=== PATIENT | female | born 1975 | race Two or more races ===

== ENCOUNTER 2018-07-05 16:13 | Inpatient (IN) | payer SELFPAY ==
[2018-07-05] MEDS ORDERED: NORMAL SALINE 1000 ML 1,000 ML IV ONE ×2 (16:49→17:47)
--- NOTE | 2018-07-05 16:52 | ER Document Report ---
ED Medical Screen (RME) - General Chief Complaint: Chest Pain Stated Complaint: CHEST PAIN Time Seen by Provider: 07/05/18 16:32 Mode of Arrival: Ambulatory Information source: Patient, [facility] Records Notes: 42-year-old female with type 1 diabetes presents with complaint of shortness of breath, chest pain, weakness, fatigue and nausea that have been ongoing for approximately 1 month. Patient states that her shortness of breath has worsened over the last 4 days. She describes pain with deep inspiration. Patient recently returned from [place] approximately 10 days ago after being there for 1 week. Patient also states that she has not been on her diabetic medication for approximately 4 months due to her inability to pay. She states that she did check her glucose last week and it read over 500. Patient denies prior history of PE and DVT. I have greeted and performed a rapid initial assessment of this patient. A comprehensive ED assessment and evaluation of the patient, analysis of test results and completion of medical decision making process we will be contacted by additional ED providers. PHYSICAL EXAMINATION: GENERAL: Ill appearing, well-nourished and in no acute distress. HEAD: Atraumatic, normocephalic. EYES: Pupils equal round extraocular movements intact, conjunctiva are normal. ENT: Nares patent NECK: Normal range of motion LUNGS: No respiratory distress. Conversational dyspnea Musculoskeletal: Normal range of motion NEUROLOGICAL: Normal speech, normal gait. PSYCH: Normal mood, normal affect. SKIN: Warm, Dry, normal turgor, no rashes or lesions noted. TRAVEL OUTSIDE OF THE [place] IN LAST 30 DAYS: No COUNTRY TRAVELED TO/FROM: [place] - HPI Onset: Other Onset/Duration: Gradual, Persistent, Worse Quality of pain: Burning Severity: Moderate Associated Symptoms: Body/muscle aches, Chest pain, Cough (nonproductive), Dizzy /lightheaded, Nausea, Shortness of breath, Weakness Exacerbated by: Movement, Walking Relieved by: Denies Similar symptoms previously: No Recently seen / treated by doctor: No - Related Data Smoking: Non-smoker Frequency of alcohol use: None Drug Abuse: None Allergies/Adverse Reactions: No Known Allergies Allergy (Unverified 07/05/18 16:17) Past Medical History - Social History Chew tobacco use (# tins/day): No Frequency of alcohol use: None Drug Abuse: None Renal/ Medical History: Denies: Hx Peritoneal Dialysis Physical Exam - Vital signs Vitals: Temp Pulse Resp BP Pulse Ox 98.5 F 118 H 20 145/91 H 100 07/05/18 16:28 07/05/18 16:28 07/05/18 16:28 07/05/18 16:28 07/05/18 16:28 Course - Vital Signs Vital signs: Temp Pulse Resp BP Pulse Ox 98.5 F 118 H 20 145/91 H 100 07/05/18 16:28 07/05/18 16:28 07/05/18 16:28 07/05/18 16:28 07/05/18 16:28 Doctor's Discharge - Discharge Referrals: CULLEN GLORIA MD [Primary Care Provider] - Follow up as needed
[2018-07-05] MEDS ORDERED: ONDANSETRON 4 MG TAB.RAPDIS PO ONE (16:53)
[2018-07-05] MEDS ORDERED: HYDROMORPHONE HCL INJ/PF 2 MG/ML AMPULE IV ONE (17:04)
--- NOTE | 2018-07-05 17:32 | EKG REPORT ---
SEVERITY:- BORDERLINE ECG - SINUS TACHYCARDIA BORDERLINE T ABNORMALITIES, ANTERIOR LEADS : Confirmed by: Licha Best MD 05-Jul-2018 17:31:51
[2018-07-05 17:44] LABS: VENOUS BLOOD BASE EXCESS -23.1 mmol/L; VENOUS BLOOD HCO3 8.6 mmol/L (20-32); VENOUS BLOOD PCO2 39.4 mmHg (35-63)
[2018-07-05 17:45] LABS: ABSOLUTE LYMPHOCYTES (AUTO) 0.9 10^3/uL (0.5-4.7); ABSOLUTE MONOCYTES (AUTO) 0.6 10^3/uL (0.1-1.4); ABSOLUTE NEUT (AUTO) 6.3 10^3/uL (1.7-8.2); BASOPHILS % (AUTO) 0.2 % (0-2); HEMATOCRIT 53.6 % (36.0-47.0); HEMOGLOBIN 17.6 g/dL (12.0-15.5); LYMPHOCYTES % (AUTO) 11.1 % (13-45); MEAN CORPUSCULAR HEMOGLOBIN 32.4 pg (27.0-33.4); MEAN CORPUSCULAR HGB CONC 32.8 g/dL (32.0-36.0); MEAN CORPUSCULAR VOLUME 99 fl (80-97); MONOCYTES % (AUTO) 7.7 % (3-13); PLATELET COUNT 273 10^3/uL (150-450); RED BLOOD COUNT 5.42 10^6/uL (3.72-5.28); RED CELL DISTRIBUTION WIDTH 17.2 % (11.5-14.0); TOTAL CELLS COUNTED % (AUTO) 100 %; WHITE BLOOD COUNT 7.8 10^3/uL (4.0-10.5)
[2018-07-05 17:49] LABS: VENOUS BLOOD PH 6.96 (7.30-7.42)
[2018-07-05 17:54] LABS: APPEARANCE,URINE SLIGHTLY-CLOUDY; BILIRUBIN,URINE NEGATIVE (NEGATIVE); COLOR,URINE YELLOW; GLUCOSE, URINE >=500 mg/dL (NEGATIVE); KETONES,URINE 80 mg/dL (NEGATIVE); LEUKOCYTE ESTERASE,URINE NEGATIVE (NEGATIVE); NITRITE,URINE NEGATIVE (NEGATIVE); PROTEIN,URINE 100 mg/dL (NEGATIVE); URINE SPECIFIC GRAVITY 1.029; UROBILINOGEN,URINE NEGATIVE mg/dL (<2.0)
[2018-07-05] MEDS ORDERED: INSULIN REG, HUMAN 100 UNIT/ML 3 ML VIAL (PYX) IV ONE (17:58)
[2018-07-05 18:03] LABS: ALANINE AMINOTRANSFERASE 23 U/L (9-52); ALBUMIN 5.1 g/dL (3.5-5.0); ALKALINE PHOSPHATASE 207 U/L (38-126); ASPARTATE AMINO TRANSFERASE 10 U/L (14-36); BILIRUBIN,DIRECT 0.3 mg/dL (0.0-0.4); BILIRUBIN,TOTAL 0.8 mg/dL (0.2-1.3); BLOOD UREA NITROGEN 10 mg/dL (7-20); CALCIUM 9.8 mg/dL (8.4-10.2); CREATINE KINASE 27 U/L (30-135); GLUCOSE 332 mg/dL (75-110); POTASSIUM 4.6 mmol/L (3.6-5.0)
[2018-07-05 18:09] LABS: CHLORIDE 109 mmol/L (98-107); SODIUM 142.4 mmol/L (137-145)
[2018-07-05 18:13] LABS: ANION GAP 27 (5-19); PHOSPHORUS 4.1 mg/dL (2.5-4.5)
[2018-07-05 18:15] LABS: CARBON DIOXIDE 6 mmol/L (22-30)
[2018-07-05 18:16] LABS: CREATINE KINASE MB 0.58 ng/mL (<4.55)
[2018-07-05 18:17] LABS: TROPONIN I < 0.012 ng/mL
--- NOTE | 2018-07-05 18:18 | ER Document Report ---
ED General - General Chief Complaint: Chest Pain Stated Complaint: CHEST PAIN Time Seen by Provider: 07/05/18 16:32 Mode of Arrival: Ambulatory TRAVEL OUTSIDE OF THE [place] IN LAST 30 DAYS: No COUNTRY TRAVELED TO/FROM: [place] - [facility] Notes: 42-year-old female with history of diabetes presents with multiple complaints. She has been noncompliant with medications for diabetes due to not having insurance for the past several months. Her BS was 500 last week. She traveled back from [place] about a week ago. For the past 3 days, she has had significant fatigue and excessive sleepiness. She developed diffuse low back pain radiating down both legs. She denies any pain with urination or blood in her urine. No vaginal discharge or bleeding. No focal weakness or numbness. She has had nausea without vomiting. No diarrhea or abdominal pain. She developed headache today with neck pain. She reports chest pain with deep breathing and significant shortness of breath with minimal activity. She has a mild cough that has been nonproductive. No hemoptysis. No fevers or chills. Denies ill contacts. - Related Data Allergies/Adverse Reactions: No Known Allergies Allergy (Unverified 07/05/18 16:17) Past Medical History - General Information source: Patient, [facility] Records - Social History Smoking Status: Never Smoker Chew tobacco use (# tins/day): No Frequency of alcohol use: None Drug Abuse: None Family History: Reviewed & Not Pertinent Patient has suicidal ideation: No Patient has homicidal ideation: No Endocrine Medical History: Reports: Hx Diabetes Mellitus Type 1 Renal/ Medical History: Denies: Hx Peritoneal Dialysis Review of Systems - Review of Systems Notes: Constitutional: Negative for fever or chills. Positive for generalized weakness and excessive sleepiness HENT: Negative for sore throat. Eyes: Negative for visual changes. Cardiovascular: Positive for chest pain with inspiration. Respiratory: Positive for shortness of breath and cough. Gastrointestinal: Negative for abdominal pain, vomiting or diarrhea. Positive for nausea Genitourinary: Negative for dysuria. Musculoskeletal: Positive for neck and back pain. Skin: Negative for rash. Neurological: Positive for headaches and generalized weakness. negative for focal weakness or numbness. 10 point ROS negative except as marked above and in HPI. Physical Exam - Vital signs Vitals: Temp Pulse Resp BP Pulse Ox 98.5 F 118 H 20 145/91 H 100 07/05/18 16:28 07/05/18 16:28 07/05/18 16:28 07/05/18 16:28 07/05/18 16:28 - Notes Notes: PHYSICAL EXAMINATION: GENERAL: Ill-appearing, well-nourished. HEAD: Atraumatic, normocephalic. EYES: Pupils equal round and reactive to light, extraocular movements intact, conjunctiva are normal. ENT: nares patent, oropharynx clear without exudates. Dry mucous membranes. NECK: Normal range of motion, supple without lymphadenopathy LUNGS: Breath sounds clear to auscultation bilaterally and equal. No wheezes rales or rhonchi. Mild tachypnea HEART: Tachycardic. Normal rhythm. No chest wall tenderness ABDOMEN: Soft, nontender, normoactive bowel sounds. No guarding, no rebound. No masses appreciated. EXTREMITIES: Normal range of motion, no pitting or edema. No cyanosis. Diffuse tenderness to palpation of lower back NEUROLOGICAL: Cranial nerves grossly intact. Normal speech, normal gait. Normal sensory and motor exams. PSYCH: Normal mood, normal affect. SKIN: Warm, Dry, normal turgor, no rashes or lesions noted. Course - Re-evaluation Re-evalutation: 07/05/18 18:18 Suspect DKA. Fluids and insulin drip ordered. D-dimer elevated with recent travel and tachycardia. CT chest ordered. 07/05/18 19:01 Chest x-ray clear. Lactic acid normal. No suggestion of infection. Low suspicion for meningitis. CT pending. Patient and family updated on need for ICU admission. Hourly glucose ordered with BMP in 2 hours. 07/05/18 19:47 hospitalist for admission. BS decreased to 234. D5 LR started at 250cc/hr. Oral potassium replaced. - Vital Signs Vital signs: Temp Pulse Resp BP Pulse Ox 98.5 F 118 H 20 145/91 H 100 07/05/18 16:28 07/05/18 16:28 07/05/18 16:28 07/05/18 16:28 07/05/18 16:28 - Laboratory Result Diagrams: 07/05/18 17:15 07/05/18 17:15 Laboratory results interpreted by me: 07/05/18 07/05/18 07/05/18 17:02 17:15 17:15 RBC 5.42 H Hgb 17.6 H Hct 53.6 H MCV 99 H RDW 17.2 H Seg Neutrophils % 81.0 H Lymphocytes % 11.1 L D-Dimer VBG pH VBG HCO3 Chloride 109 H Carbon Dioxide 6 L* Anion Gap 27 H Glucose 332 H POC Glucose 307 H AST 10 L Alkaline Phosphatase 207 H Creatine Kinase 27 L Total Protein 9.0 H Albumin 5.1 H Urine Protein Urine Glucose (UA) Urine Ketones 07/05/18 07/05/18 07/05/18 17:15 17:15 17:15 RBC Hgb Hct MCV RDW Seg Neutrophils % Lymphocytes % D-Dimer 0.61 H VBG pH 6.96 L* VBG HCO3 8.6 L Chloride Carbon Dioxide Anion Gap Glucose POC Glucose AST Alkaline Phosphatase Creatine Kinase Total Protein Albumin Urine Protein 100 H Urine Glucose (UA) >=500 H Urine Ketones 80 H Critical Care Note - Critical Care Note Total time excluding time spent on procedures (mins): 45 - Critical care time spent obtaining history from patient or surrogate, discussions with consultants , development of treatment plan with patient or surrogate, evaluation of patient 's response to treatment, examination of patient, ordering and performing treatments and interventions, ordering and review of laboratory studies, re- evaluation of patient's condition, ordering and review of radiographic studies and review of old charts Discharge - Discharge Clinical Impression: DKA (diabetic ketoacidoses) Condition: Critical Disposition: ADMITTED INPATIENT Admitting Provider: Hospitalist Unit Admitted: ICU Referrals: CULLEN GLORIA MD [Primary Care Provider] - Follow up as needed
--- NOTE | 2018-07-05 18:28 | RADIOLOGY REPORT (SQ) ---
EXAM DESCRIPTION: CHEST 2 VIEWS COMPLETED DATE/TIME: 07/05/2018 6:18 pm REASON FOR STUDY: cp, sob COMPARISON: None. EXAM PARAMETERS: NUMBER OF VIEWS: two views TECHNIQUE: Digital Frontal and Lateral radiographic views of the chest acquired. RADIATION DOSE: NA LIMITATIONS: none FINDINGS: LUNGS AND PLEURA: No consolidation, pneumothorax or pleural effusion. MEDIASTINUM AND HILAR STRUCTURES: No masses or contour abnormalities. HEART AND VASCULAR STRUCTURES: Heart normal size. No evidence for failure. BONES: No acute findings. HARDWARE: None in the chest. IMPRESSION: NO ACUTE RADIOGRAPHIC FINDING IN THE CHEST. TECHNICAL DOCUMENTATION: JOB ID: [id number] [employer]- All Rights Reserved Reading location - IP/workstation name: [email or web address]
[2018-07-05] MEDS ORDERED: POTASSIUM CHLORIDE 10 MEQ CAPSULE.ER PO ONE (18:57)
[2018-07-05] MEDS ORDERED: ONDANSETRON HCL INJ/PF 4 MG/2 ML SDV IV PRN (19:43)
[2018-07-05] MEDS ORDERED: GLUCAGON,HUMAN RECOMB 1 MG INJ IM PRN (19:43)
[2018-07-05] MEDS ORDERED: DEXTROSE 50%-WATER 25 GM/50 ML DISP.SYRIN IV PRN ×2 (19:43)
[2018-07-05] MEDS ORDERED: ONDANSETRON 4 MG TAB.RAPDIS PO PRN (19:43)
[2018-07-05] MEDS ORDERED: DEXTROSE 40% GEL 15 GM TUBE PO PRN ×2 (19:43)
[2018-07-05] MEDS ORDERED: DEXTROSE 5%-LACTATED RINGERS 1,000 ML IV ONE (19:44)
--- NOTE | 2018-07-05 20:03 | RADIOLOGY REPORT (SQ) ---
EXAM DESCRIPTION: CTA CHEST COMPLETED DATE/TIME: 07/05/2018 7:19 pm REASON FOR STUDY: cp, sob, recent travel, elevated d dimer COMPARISON: Chest x-ray 07/05/2018. TECHNIQUE: CT scan of the chest performed using helical scanning technique with dynamic intravenous contrast injection. Images reviewed with lung, soft tissue and bone windows. Reconstructed coronal and sagittal MPR images reviewed. Additional 3 dimensional post-processing performed to develop Maximal Intensity Projection images (WI P). All images stored on PACS. All CT scanners at this facility use dose modulation, iterative reconstruction, and/or weight based d osing when appropriate to reduce radiation dose to as low as reasonably achievable (ALARA). [facility]: Dose Right [facility]: CareDose [facility]: Dose Right [facility]: Teradose 4D [facility]: Pin or Peg CONTRAST TYPE AND DOSE: contrast/concentration: Isovue 350.00 mg/ml; Total Contrast Delivered: 62.0 ml; Total Saline Delivered: 103.0 ml Contrast bolus optimized for the pulmonary arteries. Not diagnostic for the aorta. RENAL FUNCTION: Creatinine 0.56 RADIATION DOSE: CT Rad equipment meets quality standard of care and radiation dose reduction techniq ues were employed. CTDIvol: 14.6 - 16.5 mGy. DLP: 529 mGy-cm. . LIMITATIONS: None. FINDINGS: LUNGS AND PLEURA: No consolidation, pleural effusion or pneumothorax. AORTA AND GREAT VESSELS: No thoracic aortic aneurysm. Contrast bolus not optimized for the aorta. HEART: No pericardial effusion. No significant coronary artery calcifications. PULMONARY ARTERIES: No emboli visualized in the main pulmonary arteries or the segmental branches. HILAR AND MEDIASTINAL STRUCTURES: No identified masses or abnormal nodes. HARDWARE: None in the chest. UPPER ABDOMEN: There is cholelithiasis. THYROID AND OTHER SOFT TISSUES: The visualized thyroid gland is unremarkable. BONES: No acute or significant finding. 3D MIPS: Confirm above findings. OTHER: There are bilateral breast implants. IMPRESSION: 1. No pulmonary emboli. No acute findings in the chest. 2. Cholelithiasis. COMMENT: Quality ID # [id number]: Final reports with documentation of one or more dose reduction techniques (e.g., Automated exposure control, adjustment of the mA and/or kV according to patient size, use of iterative reconstruction technique) TECHNICAL DOCUMENTATION: JOB ID: [id number] [employer]- All Rights Reserved Reading location - IP/workstation name: [email or web address]
[2018-07-05 20:16] LABS: BLOOD UREA NITROGEN 9 mg/dL (7-20); CALCIUM 8.7 mg/dL (8.4-10.2); CHLORIDE 116 mmol/L (98-107); GLUCOSE 258 mg/dL (75-110); POTASSIUM 3.9 mmol/L (3.6-5.0); SODIUM 139.7 mmol/L (137-145)
[2018-07-05 20:36] LABS: CARBON DIOXIDE < 5 mmol/L (22-30)
[2018-07-05] MEDS ORDERED: RINGERS SOLUTION,LACTATED 1,000 ML IV ONE (20:39)
[2018-07-05 21:58] LABS: VENOUS BLOOD BASE EXCESS -21.1 mmol/L; VENOUS BLOOD HCO3 8.7 mmol/L (20-32); VENOUS BLOOD PCO2 33.5 mmHg (35-63)
[2018-07-05 21:59] LABS: VENOUS BLOOD PH 7.03 (7.30-7.42)
[2018-07-05] MEDS: ACETAMINOPHEN 325 MG TABLET PO PRN (23:46)
[2018-07-05] MEDS ORDERED: DEXTROSE 5% IV PRN ×2 (23:59)
[2018-07-05] MEDS ORDERED: SODIUM BICARBONATE IV PRN ×2 (23:59)
[2018-07-05] MEDS ORDERED: WATER IV PRN ×2 (23:59)
--- NOTE | 2018-07-06 00:13 | PDOC H&P ---
History of Present Illness Admission Date/PCP: 07/05/18 20:13 Patient complains of: Burning sensation in chest, hyperglycemia History of Present Illness: DALE GONG is a 42 year old female with a known PMH of DM on insulin which she states she stopped taking 5 months ago secondary to lack of insurance presenting to ER with a burning sensation in her chest and hyperglycemia. States she has been having intermittent chest burning associated with shortness of breath x 1 month with worsening over the past 4 days. She was diagnosed with DM in 2011 and was on an insulin pump which she discontinued 5 months ago given she can not afford it and has no insurance. Patient also has no PCP. Past Medical History Endocrine Medical History: Reports: Diabetes Mellitus Type 1 Past Surgical History Past Surgical History: Reports: None Social History Information Source: Patient Lives with: Family Smoking Status: Never Smoker Drugs: None Family History Family History: Reviewed & Not Pertinent Parental Family History Reviewed: Yes Children Family History Reviewed: Yes Sibling(s) Family History Reviewed.: Yes Medication/Allergy Allergies/Adverse Reactions: No Known Allergies Allergy (Unverified 07/05/18 16:17) Review of Systems Constitutional: PRESENT: weakness. ABSENT: chills, fever(s), night sweats Cardiovascular: PRESENT: chest pain, dyspnea on exertion Respiratory: ABSENT: cough, hemoptysis Gastrointestinal: ABSENT: abdominal pain Musculoskeletal: PRESENT: back pain Physical Exam Vital Signs: Temp Pulse Resp BP Pulse Ox 98.5 F 118 H 15 124/99 H 100 07/05/18 16:28 07/05/18 16:28 07/05/18 20:04 07/05/18 20:04 07/05/18 20:04 General appearance: PRESENT: no acute distress Head exam: PRESENT: atraumatic, normocephalic Eye exam: PRESENT: conjunctiva pink, EOMI, PERRLA. ABSENT: scleral icterus Ear exam: PRESENT: normal external ear exam Mouth exam: PRESENT: moist, tongue midline Neck exam: ABSENT: carotid bruit, JVD, lymphadenopathy, thyromegaly Respiratory exam: PRESENT: clear to auscultation denita. ABSENT: rales, rhonchi, wheezes Cardiovascular exam: PRESENT: RRR. ABSENT: diastolic murmur, rubs, systolic murmur Pulses: PRESENT: normal dorsalis pedis pul Vascular exam: PRESENT: normal capillary refill GI/Abdominal exam: PRESENT: normal bowel sounds, soft. ABSENT: distended, guarding, mass, organolmegaly, rebound, tenderness Rectal exam: PRESENT: deferred Extremities exam: PRESENT: full ROM. ABSENT: calf tenderness, clubbing, pedal edema Musculoskeletal exam: PRESENT: full ROM, tenderness - paraspinal muscles bilateral lumbar region Neurological exam: PRESENT: alert, awake, oriented to person, oriented to place , oriented to time, oriented to situation, CN II-XII grossly intact. ABSENT: motor sensory deficit Psychiatric exam: PRESENT: appropriate affect, normal mood. ABSENT: homicidal ideation, suicidal ideation Skin exam: PRESENT: dry, intact, warm. ABSENT: cyanosis, rash Results Laboratory Results: 07/05/18 21:37 VBG pH 7.03 L* VBG pCO2 33.5 L VBG HCO3 8.7 L VBG Base Excess -21.1 Impressions: Chest X-Ray 07/05/18 17:48 IMPRESSION: NO ACUTE RADIOGRAPHIC FINDING IN THE CHEST. Chest/Abdomen CTA 07/05/18 18:12 IMPRESSION: 1. No pulmonary emboli. No acute findings in the chest. 2. Cholelithiasis. Assessment & Plan - Diagnosis (1) DKA (diabetic ketoacidoses) Qualifiers: Diabetes mellitus type: type 1 Diabetes mellitus complication detail: without coma Qualified Code(s): E10.10 - Type 1 diabetes mellitus with ketoacidosis without coma Is this a current diagnosis for this admission?: Yes Plan: Patient to be admitted to the ICU. Started on DKA protocol, with insulin drip. Titration as per protocol. continue with q1h BS checks. q4h BMP checks. Continue with fluid resuscitation. Will switch fluids to D5 1/2NS + 20 meq Kcl once BS between 150-250. 1amp bicarb to be given. Repeat pH appears to be improving. Will continue to monitor closely. (2) Poorly controlled diabetes mellitus Is this a current diagnosis for this admission?: Yes Plan: Patient is in need of diabetic education as well as assistance with access to medications. track service worker consult pending for this AM. (3) Chest pain, rule out acute myocardial infarction Is this a current diagnosis for this admission?: Yes Plan: trop negative x 1. will continue to trend q6h x 3 or until wnl. no acute chest pain at this time. EKG unremarkable. nitro, morphine prn chest pain. will continue to monitor. - Time Time Spent: 30 to 50 Minutes Critical Time spent with patient: 25-34 minutes Medications reviewed and adjusted accordingly: Yes Anticipated discharge: Home
[2018-07-06] MEDS ORDERED: KETOROLAC TROMETHAMINE INJ/PF 30 MG/1 ML SDV IV PRN (00:20)
[2018-07-06] MEDS ORDERED: CYCLOBENZAPRINE HCL 10 MG TABLET PO ONE (00:21)
[2018-07-06] MEDS ORDERED: SODIUM BICARBONATE 8.4% INJ 50 MEQ/50 ML DISP.SYRIN ONE (00:36)
[2018-07-06 00:47] LABS: ANION GAP 15 (5-19); BLOOD UREA NITROGEN 8 mg/dL (7-20); CALCIUM 8.6 mg/dL (8.4-10.2); CHLORIDE 117 mmol/L (98-107); GLUCOSE 209 mg/dL (75-110); POTASSIUM 3.1 mmol/L (3.6-5.0); SODIUM 140.6 mmol/L (137-145)
[2018-07-06 01:02] LABS: CARBON DIOXIDE 9 mmol/L (22-30)
[2018-07-06 04:18] LABS: ABSOLUTE MONOCYTES (AUTO) 0.7 10^3/uL (0.1-1.4); ABSOLUTE NEUT (AUTO) 3.6 10^3/uL (1.7-8.2); BASOPHILS % (AUTO) 0.3 % (0-2); EOSINOPHILS % (AUTO) 0.7 % (0-6); HEMATOCRIT 38.7 % (36.0-47.0); LYMPHOCYTES % (AUTO) 18.3 % (13-45); MEAN CORPUSCULAR HEMOGLOBIN 31.5 pg (27.0-33.4); MEAN CORPUSCULAR HGB CONC 33.7 g/dL (32.0-36.0); MONOCYTES % (AUTO) 13.7 % (3-13); PLATELET COUNT 179 10^3/uL (150-450); RED BLOOD COUNT 4.13 10^6/uL (3.72-5.28); RED CELL DISTRIBUTION WIDTH 16.2 % (11.5-14.0); TOTAL CELLS COUNTED % (AUTO) 100 %; WHITE BLOOD COUNT 5.3 10^3/uL (4.0-10.5)
[2018-07-06 04:19] LABS: MEAN CORPUSCULAR VOLUME 94 fl (80-97)
[2018-07-06 04:59] LABS: ANION GAP 9 (5-19); BLOOD UREA NITROGEN 6 mg/dL (7-20); CALCIUM 8.3 mg/dL (8.4-10.2); CARBON DIOXIDE 15 mmol/L (22-30); CHLORIDE 116 mmol/L (98-107); GLUCOSE 161 mg/dL (75-110); SODIUM 140.4 mmol/L (137-145)
[2018-07-06 05:05] LABS: POTASSIUM 2.8 mmol/L (3.6-5.0)
[2018-07-06] MEDS ORDERED: POTASSIUM CHLORIDE 10 MEQ CAPSULE.ER PO ONE ×3 (05:20→22:30)
[2018-07-06] MEDS: POTASSI CL 20 MEQ/D5NS 1L 20 MEQ/1,000 ML RTUINJ IV PRN ×3 (05:32→13:57)
[2018-07-06] MEDS ORDERED: INSULIN REG, HUMAN 100 UNIT/ML 3 ML VIAL (PYX) ONE (05:38)
[2018-07-06 08:05] LABS: ANION GAP 9 (5-19); BLOOD UREA NITROGEN 6 mg/dL (7-20); CALCIUM 7.9 mg/dL (8.4-10.2); CARBON DIOXIDE 16 mmol/L (22-30); CHLORIDE 116 mmol/L (98-107); GLUCOSE 116 mg/dL (75-110); SODIUM 140.9 mmol/L (137-145)
[2018-07-06 08:12] LABS: POTASSIUM 2.7 mmol/L (3.6-5.0)
[2018-07-06] MEDS: POTASSIUM CHLORIDE 10 MEQ CAPSULE.ER PO SCH (09:49)
[2018-07-06] MEDS: ENOXAPARIN SODIUM INJ 40 MG/0.4 ML DISP.SYRIN SUBCUT SCH (09:53)
[2018-07-06] MEDS: POTASSI CL 20 MEQ/50 ML RIDER 20 MEQ/50 ML RTUPB IV SCH ×3 (10:02→13:54)
[2018-07-06 11:08] LABS: ARTERIAL BLOOD BASE EXCESS -8.3 mmol/L; ARTERIAL BLOOD H2CO3 0.92 mmol/L (1.05-1.35); ARTERIAL BLOOD HCO3 16.2 mmol/L (20-26); ARTERIAL BLOOD O2 SATURATION 98.4 % (94-98); ARTERIAL BLOOD PCO2 30.5 mmHg (35-45); ARTERIAL BLOOD PH 7.34 (7.35-7.45); ARTERIAL BLOOD PO2 128.5 mmHg (80-100); ARTERIAL BLOOD TOTAL CO2 17.1 mmol/L (21-25)
[2018-07-06 11:13] LABS: ARTERIAL BLOOD FIO2 21%
[2018-07-06] MEDS ORDERED: NORMAL SALINE 100 ML with INSULIN REGULAR, HUMAN 100 UNIT IV PRN ×2 (12:59)
[2018-07-06 14:19] LABS: ANION GAP 6 (5-19); BLOOD UREA NITROGEN 7 mg/dL (7-20); CALCIUM 8.3 mg/dL (8.4-10.2); CARBON DIOXIDE 19 mmol/L (22-30); CHLORIDE 117 mmol/L (98-107); GLUCOSE 227 mg/dL (75-110); POTASSIUM 3.3 mmol/L (3.6-5.0); SODIUM 142.2 mmol/L (137-145)
[2018-07-06 14:35] LABS: PHOSPHORUS 0.7 mg/dL (2.5-4.5)
[2018-07-06] MEDS ORDERED: DEXTROSE 40% GEL 15 GM TUBE PO PRN ×2 (15:17)
[2018-07-06] MEDS ORDERED: DEXTROSE 50%-WATER 25 GM/50 ML DISP.SYRIN IV PRN ×2 (15:17)
[2018-07-06] MEDS ORDERED: GLUCAGON,HUMAN RECOMB 1 MG INJ IM PRN (15:17)
[2018-07-06] MEDS ORDERED: CALCIUM CARBONATE 500 MG TAB.CHEW PO ONE (17:33)
[2018-07-06] MEDS: LANSOPRAZOLE 15 MG TAB.RAP.DR PO SCH (17:48)
[2018-07-06] MEDS ORDERED: ALPRAZOLAM 0.25 MG TABLET PO PRN (17:57)
[2018-07-06] MEDS ORDERED: CYCLOBENZAPRINE HCL 10 MG TABLET PO PRN (17:57)
--- NOTE | 2018-07-06 18:00 | PDOC PROGRESS REPORT ---
Subjective Progress Note for:: 07/06/18 Subjective:: 42 y.o. F who presented to [facility] ED for midsternal "burning" and SOB x 1 month. She has a PMH of DM type 1 (diagnosed in her 30s) and stopped taking her insulin 5 months ago because she could no longer afford her insulin pump. The patient was seen this morning on rounds, she is resting comfortably in bed on room air. The patient states that her chest pain has resolved, she no longer feels short of breath or nauseated. Family is at the bedside. Lung sounds are clear to auscultation. S1-S2. NSR on cardiac telemetry. Pulses in upper and lower extremities. Positive bowel sounds. Abdomen is soft, nontender , nondistended. The patient remains on an insulin gtt. Repeat ABG shows the patient is no longer acidotic, anion gap still open. Plan to admit to [facility] on insulin gtt protocol Reason For Visit: DKA,CHEST PAIN Physical Exam Vital Signs: Temp Pulse Resp BP Pulse Ox 98.2 F 100 18 94/63 L 100 07/06/18 16:39 07/06/18 16:39 07/06/18 16:39 07/06/18 16:39 07/06/18 16:39 Intake & Output 07/05/18 07/06/18 07/07/18 06:59 06:59 06:59 Intake Total 3400 2107 Balance 3400 2107 General appearance: PRESENT: no acute distress, well-developed, well-nourished Head exam: PRESENT: atraumatic Eye exam: PRESENT: conjunctiva pink, PERRLA Mouth exam: PRESENT: moist, tongue midline Neck exam: PRESENT: full ROM Respiratory exam: PRESENT: clear to auscultation denita, symmetrical, unlabored Cardiovascular exam: PRESENT: RRR, +S1, +S2 Pulses: PRESENT: normal radial pulses, normal dorsalis pedis pul Vascular exam: PRESENT: normal capillary refill GI/Abdominal exam: PRESENT: normal bowel sounds, soft. ABSENT: tenderness Rectal exam: PRESENT: deferred Extremities exam: PRESENT: full ROM. ABSENT: joint swelling, pedal edema Musculoskeletal exam: PRESENT: ambulatory, full ROM Neurological exam: PRESENT: alert, awake, oriented to person, oriented to place , oriented to time, oriented to situation Psychiatric exam: PRESENT: appropriate affect Skin exam: PRESENT: dry, intact, normal color Results Laboratory Results: 07/06/18 03:55 07/06/18 13:30 07/05/18 07/06/18 07/06/18 21:37 00:15 03:55 WBC 5.3 RBC 4.13 Hgb 13.0 D Hct 38.7 MCV 94 D MCH 31.5 MCHC 33.7 RDW 16.2 H Plt Count 179 Seg Neutrophils % 67.0 Lymphocytes % 18.3 Monocytes % 13.7 H Eosinophils % 0.7 Basophils % 0.3 Absolute Neutrophils 3.6 Absolute Lymphocytes 1.0 Absolute Monocytes 0.7 Absolute Eosinophils 0.0 Absolute Basophils 0.0 Carbonic Acid HCO3/H2CO3 Ratio ABG pH ABG pCO2 ABG pO2 ABG HCO3 ABG O2 Saturation ABG Base Excess VBG pH 7.03 L* VBG pCO2 33.5 L VBG HCO3 8.7 L VBG Base Excess -21.1 FiO2 Sodium 140.6 Potassium 3.1 L Chloride 117 H Carbon Dioxide 9 L* Anion Gap 15 BUN 8 Creatinine 0.37 L Est GFR ( Amer) > 60 Est GFR (Non-Af Amer) > 60 Glucose 209 H Calcium 8.6 Phosphorus Magnesium 07/06/18 07/06/18 07/06/18 03:55 07:42 10:50 WBC RBC Hgb Hct MCV MCH MCHC RDW Plt Count Seg Neutrophils % Lymphocytes % Monocytes % Eosinophils % Basophils % Absolute Neutrophils Absolute Lymphocytes Absolute Monocytes Absolute Eosinophils Absolute Basophils Carbonic Acid 0.92 L HCO3/H2CO3 Ratio 17:1 ABG pH 7.34 L ABG pCO2 30.5 L ABG pO2 128.5 H ABG HCO3 16.2 L ABG O2 Saturation 98.4 H ABG Base Excess -8.3 VBG pH VBG pCO2 VBG HCO3 VBG Base Excess FiO2 21% Sodium 140.4 140.9 Potassium 2.8 L* 2.7 L* Chloride 116 H 116 H Carbon Dioxide 15 L 16 L Anion Gap 9 9 BUN 6 L 6 L Creatinine 0.33 L 0.33 L Est GFR ( Amer) > 60 > 60 Est GFR (Non-Af Amer) > 60 > 60 Glucose 161 H 116 H Calcium 8.3 L 7.9 L Phosphorus Magnesium 07/06/18 07/06/18 13:30 13:30 WBC RBC Hgb Hct MCV MCH MCHC RDW Plt Count Seg Neutrophils % Lymphocytes % Monocytes % Eosinophils % Basophils % Absolute Neutrophils Absolute Lymphocytes Absolute Monocytes Absolute Eosinophils Absolute Basophils Carbonic Acid HCO3/H2CO3 Ratio ABG pH ABG pCO2 ABG pO2 ABG HCO3 ABG O2 Saturation ABG Base Excess VBG pH VBG pCO2 VBG HCO3 VBG Base Excess FiO2 Sodium 142.2 Potassium 3.3 L Chloride 117 H Carbon Dioxide 19 L Anion Gap 6 BUN 7 Creatinine 0.34 L Est GFR ( Amer) > 60 Est GFR (Non-Af Amer) > 60 Glucose 227 H Calcium 8.3 L Phosphorus 0.7 L D Magnesium 1.4 L Impressions: Chest X-Ray 07/05/18 17:48 IMPRESSION: NO ACUTE RADIOGRAPHIC FINDING IN THE CHEST. Chest/Abdomen CTA 07/05/18 18:12 IMPRESSION: 1. No pulmonary emboli. No acute findings in the chest. 2. Cholelithiasis. Status: Imported from PACS Assessment & Plan - Diagnosis (1) DKA (diabetic ketoacidoses) Qualifiers: Diabetes mellitus type: type 1 Diabetes mellitus complication detail: without coma Qualified Code(s): E10.10 - Type 1 diabetes mellitus with ketoacidosis without coma Is this a current diagnosis for this admission?: Yes Plan: Secondary to noncompliance with insulin. Initial BG 332 Anion Gap 27 ph 6.9 on VBG 1 amp bicarb given, repeat pH is 7.34 on ABG Continue insulin drip per protocol Serial BMP checks every 6 hours Maintenance IVF d51/2NS 20KCL Plan to discontinue insulin gtt when BG < [address] on sliding scale insulin at that time (2) Chest pain Is this a current diagnosis for this admission?: Yes Plan: Unclear etiology but appears to be noncardiac in nature Troponin<0.012 and EKG shows NSR, no signs of ischemia or infarction Patient's only risk factor is diabetes, she is otherwise without multiple comorbidities No plan to consult cardiology Tylenol and flexeril PRN for chest wall pain Xanax PRN for anxiety TUMS PRN and BID lansoprazole for GERD - Time Time Spent with patient: 15-24 minutes Medications reviewed and adjusted accordingly: Yes Anticipated discharge: Home - Inpatient Certification Based on my medical assessment, after consideration of the patient's comorbidities, presenting symptoms, or acuity I expect that the services needed warrant INPATIENT care.: Yes I certify that my determination is in accordance with my understanding of Medicare's requirements for reasonable and necessary INPATIENT services [42 CFR 412.3e].: Yes Medical Necessity: Risk of Complication if Not Cared For in Hospital - Plan Summary Plan Summary: Admit to IMCU on insulin GTT. Serial BMP checks every 6 hours.
[2018-07-06 18:58] LABS: ANION GAP 11 (5-19); BLOOD UREA NITROGEN 6 mg/dL (7-20); CALCIUM 8.7 mg/dL (8.4-10.2); CARBON DIOXIDE 17 mmol/L (22-30); CHLORIDE 114 mmol/L (98-107); GLUCOSE 234 mg/dL (75-110); PHOSPHORUS 1.1 mg/dL (2.5-4.5); POTASSIUM 3.4 mmol/L (3.6-5.0); SODIUM 141.6 mmol/L (137-145)
[2018-07-06] MEDS: INSULIN LISPRO 100 UNIT/ML 3 ML VIAL SUBCUT PRN ×2 (19:34→22:26)
[2018-07-06] MEDS: MAGNESIUM SULFATE 1 GM/D5W 100 ML IV SCH ×2 (22:05→23:19)
[2018-07-07] MEDS ORDERED: POTASSIUM CHLORIDE 10 MEQ CAPSULE.ER PO ONE
[2018-07-07 01:15] LABS: ANION GAP 8 (5-19); BLOOD UREA NITROGEN 5 mg/dL (7-20); CALCIUM 8.2 mg/dL (8.4-10.2); CARBON DIOXIDE 19 mmol/L (22-30); CHLORIDE 112 mmol/L (98-107); GLUCOSE 214 mg/dL (75-110); PHOSPHORUS 0.9 mg/dL (2.5-4.5); POTASSIUM 3.1 mmol/L (3.6-5.0); SODIUM 138.9 mmol/L (137-145)
[2018-07-07] MEDS: LANSOPRAZOLE 15 MG TAB.RAP.DR PO SCH ×2 (05:44→17:00)
[2018-07-07 06:51] LABS: ANION GAP 10 (5-19); BLOOD UREA NITROGEN 3 mg/dL (7-20); CALCIUM 8.3 mg/dL (8.4-10.2); CARBON DIOXIDE 20 mmol/L (22-30); CHLORIDE 112 mmol/L (98-107); GLUCOSE 157 mg/dL (75-110); POTASSIUM 3.6 mmol/L (3.6-5.0); SODIUM 142.2 mmol/L (137-145)
[2018-07-07] MEDS: ACETAMINOPHEN 325 MG TABLET PO PRN ×2 (07:16→17:01)
[2018-07-07] MEDS ORDERED: NORMAL SALINE 1000 ML 1,000 ML IV PRN (08:08)
[2018-07-07] MEDS: INSULIN GLARGINE,HUM.REC.ANLOG 300 UNIT/3 ML INSULN.PEN SUBCUT SCH (09:12)
[2018-07-07] MEDS: ENOXAPARIN SODIUM INJ 40 MG/0.4 ML DISP.SYRIN SUBCUT SCH (09:12)
[2018-07-07] MEDS: POTASSIUM CHLORIDE 10 MEQ CAPSULE.ER PO SCH (09:12)
[2018-07-07] MEDS: CALCIUM CARBONATE 250 MG/VITAMIN D3 125 UNIT TABLET PO SCH (09:13)
[2018-07-07] MEDS ORDERED: POTASSIUM PHOS,M-BASIC-D-BASIC 15 MMOL in NORMAL SALINE 250 ML IV ONE (10:00)
[2018-07-07 12:28] LABS: ANION GAP 9 (5-19); BLOOD UREA NITROGEN 4 mg/dL (7-20); CALCIUM 8.2 mg/dL (8.4-10.2); CARBON DIOXIDE 22 mmol/L (22-30); CHLORIDE 110 mmol/L (98-107); GLUCOSE 298 mg/dL (75-110); PHOSPHORUS 1.9 mg/dL (2.5-4.5); POTASSIUM 3.7 mmol/L (3.6-5.0)
[2018-07-07] MEDS ORDERED: INSULIN LISPRO 100 UNIT/ML 3 ML VIAL SUBCUT SCH ×2 (12:45)
[2018-07-07] MEDS: INSULIN LISPRO 100 UNIT/ML 3 ML VIAL SUBCUT SCH ×2 (14:05→17:01)
[2018-07-07] MEDS: INSULIN LISPRO 100 UNIT/ML 3 ML VIAL SUBCUT PRN ×2 (17:00→22:32)
--- NOTE | 2018-07-07 18:44 | PDOC PROGRESS REPORT ---
Subjective Progress Note for:: 07/07/18 Subjective:: The patient is a 42-year-old female with a past medical history of insulin- dependent diabetes mellitus who was admitted on 07/05/18 for atypical chest pain and DKA. The patient is seen on morning rounds. She is found resting in bed comfortably on room air. Her only complaint at present is a headache which has responded fairly well to Tylenol. She denies fever, chills, body aches, chest pain, palpitations, dyspnea, orthopnea, cough, abdominal pain, nausea vomiting diarrhea. She is very anxious about transitioning to intermittent insulin after having utilized an insulin pump for several years. However, she is unable to afford the insulin for her pump at this time understands that she requires insulin to prevent future complications. The patient met with the filling hauler today and requests that she remain inpatient so that she can manage her insulin for dinner and breakfast to be certain that she has a full understanding of the new regiment. Otherwise, she has no concerns. No concerns per nursing. Reason For Visit: DKA,CHEST PAIN Physical Exam Vital Signs: Temp Pulse Resp BP Pulse Ox 98.0 F 79 16 110/70 100 07/07/18 16:26 07/07/18 16:26 07/07/18 16:26 07/07/18 16:26 07/07/18 16:26 Intake & Output 07/06/18 07/07/18 07/08/18 06:59 06:59 06:59 Intake Total 3400 3598 250 Balance 3400 3598 250 General appearance: PRESENT: no acute distress, cooperative, thin, well- developed, well-nourished Head exam: PRESENT: atraumatic, normocephalic Eye exam: PRESENT: conjunctiva pink, EOMI, PERRLA. ABSENT: scleral icterus Ear exam: PRESENT: normal external ear exam Mouth exam: PRESENT: moist, tongue midline Neck exam: ABSENT: carotid bruit, JVD, lymphadenopathy, thyromegaly Respiratory exam: PRESENT: clear to auscultation denita, symmetrical, unlabored. ABSENT: rales, rhonchi, wheezes Cardiovascular exam: PRESENT: RRR. ABSENT: diastolic murmur, rubs, systolic murmur Pulses: PRESENT: normal dorsalis pedis pul Vascular exam: PRESENT: normal capillary refill GI/Abdominal exam: PRESENT: normal bowel sounds, soft. ABSENT: distended, guarding, mass, organolmegaly, rebound, tenderness Rectal exam: PRESENT: deferred Extremities exam: PRESENT: full ROM. ABSENT: calf tenderness, clubbing, pedal edema Neurological exam: PRESENT: alert, awake, oriented to person, oriented to place , oriented to time, oriented to situation, CN II-XII grossly intact. ABSENT: motor sensory deficit Psychiatric exam: PRESENT: appropriate affect, normal mood. ABSENT: homicidal ideation, suicidal ideation Skin exam: PRESENT: dry, intact, warm. ABSENT: cyanosis, rash Results Laboratory Results: 07/06/18 03:55 07/07/18 11:48 07/06/18 07/07/18 07/07/18 18:11 00:23 06:11 Sodium 141.6 138.9 142.2 Potassium 3.4 L 3.1 L 3.6 Chloride 114 H 112 H 112 H Carbon Dioxide 17 L 19 L 20 L Anion Gap 11 8 10 BUN 6 L 5 L 3 L Creatinine 0.37 L 0.35 L 0.36 L Est GFR ( Amer) > 60 > 60 > 60 Est GFR (Non-Af Amer) > 60 > 60 > 60 Glucose 234 H 214 H 157 H Calcium 8.7 8.2 L 8.3 L Phosphorus 1.1 L 0.9 L 2.0 L Magnesium 1.7 2.5 H 2.2 07/07/18 11:48 Sodium 141.0 Potassium 3.7 Chloride 110 H Carbon Dioxide 22 Anion Gap 9 BUN 4 L Creatinine 0.41 L Est GFR ( Amer) > 60 Est GFR (Non-Af Amer) > 60 Glucose 298 H Calcium 8.2 L Phosphorus 1.9 L Magnesium 2.0 Impressions: Chest X-Ray 07/05/18 17:48 IMPRESSION: NO ACUTE RADIOGRAPHIC FINDING IN THE CHEST. Chest/Abdomen CTA 07/05/18 18:12 IMPRESSION: 1. No pulmonary emboli. No acute findings in the chest. 2. Cholelithiasis. Assessment & Plan - Diagnosis (1) DKA (diabetic ketoacidoses) Qualifiers: Diabetes mellitus type: type 1 Diabetes mellitus complication detail: without coma Qualified Code(s): E10.10 - Type 1 diabetes mellitus with ketoacidosis without coma Is this a current diagnosis for this admission?: Yes Plan: The patient was initially admitted with a glucose of 332, bicarb of 6, and anion gap of 27. She was initially placed on an insulin drip with aggressive IV fluid rehydration. Electrolytes were monitored every 6 hours and replaced as needed. Her anion gap has subsequently closed and bicarb has improved to 22. The patient is transitioned to a consistent carb diet. Placed on Lantus 10 units daily. She has met with the filling hauler with recommendations that her Humalog coverage be a combination of carb counting with sliding scale coverage to closely match her previous insulin pump settings. She is placed on Humalog 1 unit per 20 g of carb at meals with sliding scale at meals and each S. We will continue to monitor chemistry overnight while patient self administers insulin to ensure adequate dosing. Hypoglycemia protocols are in place. Anticipate discharge tomorrow morning. (2) Poorly controlled diabetes mellitus Is this a current diagnosis for this admission?: Yes Plan: Hemoglobin A1c found to be 10.1%. The patient reports that she has been out of insulin for nearly 5 months due to being unable to afford her insulin pump refills. Medication adjustments as above. Discharge planning has been consulted; appreciate their assistance in obtaining low-cost medication for patient as well as in establishing with a local primary care provider. Appreciate the filling hauler's assistance. (3) Chest pain, rule out acute myocardial infarction Is this a current diagnosis for this admission?: Yes Plan: The patient complained of atypical chest pain described as burning without associated symptoms and found to be in DKA. Low suspicion for ACS. Chest x-ray is benign. CT of the abdomen and chest was negative for PE and acute pulmonary processes; did incidentally find cholelithiasis. EKG demonstrated normal sinus rhythm. Initial troponin is negative. - Time Time Spent with patient: 25-34 minutes Medications reviewed and adjusted accordingly: Yes Anticipated discharge: Home Within: within 24 hours
[2018-07-07 19:07] LABS: ANION GAP 8 (5-19); BLOOD UREA NITROGEN 7 mg/dL (7-20); CALCIUM 8.2 mg/dL (8.4-10.2); CARBON DIOXIDE 25 mmol/L (22-30); CHLORIDE 109 mmol/L (98-107); GLUCOSE 283 mg/dL (75-110); PHOSPHORUS 2.4 mg/dL (2.5-4.5); POTASSIUM 3.3 mmol/L (3.6-5.0); SODIUM 141.7 mmol/L (137-145)
[2018-07-08] MEDS: ACETAMINOPHEN 325 MG TABLET PO PRN (05:10)
[2018-07-08] MEDS: LANSOPRAZOLE 15 MG TAB.RAP.DR PO SCH (05:10)
[2018-07-08] MEDS ORDERED: POTASSIUM CHLORIDE 10 MEQ CAPSULE.ER PO ONE (09:00)
[2018-07-08] MEDS: INSULIN LISPRO 100 UNIT/ML 3 ML VIAL SUBCUT SCH (09:31)
[2018-07-08] MEDS: POTASSIUM CHLORIDE 10 MEQ CAPSULE.ER PO SCH (09:32)
[2018-07-08] MEDS: INSULIN GLARGINE,HUM.REC.ANLOG 300 UNIT/3 ML INSULN.PEN SUBCUT SCH (09:32)
[2018-07-08] MEDS: ENOXAPARIN SODIUM INJ 40 MG/0.4 ML DISP.SYRIN SUBCUT SCH (09:33)
[2018-07-08] MEDS: CALCIUM CARBONATE 250 MG/VITAMIN D3 125 UNIT TABLET PO SCH (09:33)
[2018-07-08] MEDS: INSULIN LISPRO 100 UNIT/ML 3 ML VIAL SUBCUT PRN (09:35)
[2018-07-08 11:31] VITALS: BP 101/59
--- NOTE | 2018-07-09 21:47 | PDOC DISCHARGE SUMMARY ---
General - Admit/Disc Date/PCP Admission Date/Primary Care Provider: 07/05/18 20:13 Discharge Date: 07/08/18 - Discharge Diagnosis (1) DKA (diabetic ketoacidoses) Is this a current diagnosis for this admission?: Yes (2) Poorly controlled diabetes mellitus Is this a current diagnosis for this admission?: Yes (3) Chest pain, rule out acute myocardial infarction Is this a current diagnosis for this admission?: Yes - Additional Information Resuscitation Status: Full Code Discharge Diet: Diabetic Discharge Activity: Activity As Tolerated Prescriptions: Calcium Carbonate/Vitamin D3 [Os-Ernesto 250 mg with Vitamin D 125 Units] 1 tab PO DAILY #30 tablet Insulin Glargine,Hum.rec.anlog [Lantus Insulin 100 Unit/mL] 10 unit SUBCUT DAILY #1 insuln.pen Insulin Lispro [Humalog Kwikpen U-100] See Protocol SQ AC #1 insuln.pen Insulin Lispro [Humalog Kwikpen] 0 - 12 unit SQ ACHS #1 unit Home Medications: Acetaminophen [Tylenol 325 mg Tablet] 650 mg PO Q4HP PRN tablet 07/08/18 Calcium Carbonate/Vitamin D3 [Os-Ernesto 250 mg with Vitamin D 125 Units] 1 tab PO DAILY #30 tablet 07/08/18 Insulin Glargine,Hum.rec.anlog [Lantus Insulin 100 Unit/mL] 10 unit SUBCUT DAILY #1 insuln.pen 07/08/18 Insulin Lispro [Humalog Kwikpen U-100] See Protocol SQ AC #1 insuln.pen Insulin Lispro [Humalog Kwikpen] 0 - 12 unit SQ ACHS #1 unit 07/08/18 History of Present Illness History of Present Illness: Per H&P by Dr. Pelaez: DALE GONG is a 42 year old female with a known PMH of DM on insulin which she states she stopped taking 5 months ago secondary to lack of insurance presenting to ER with a burning sensation in her chest and hyperglycemia. States she has been having intermittent chest burning associated with shortness of breath x 1 month with worsening over the past 4 days. She was diagnosed with DM in 2011 and was on an insulin pump which she discontinued 5 months ago given she can not afford it and has no insurance. Patient also has no PCP. Hospital Course Hospital Course: The patient presented with a complaint of atypical chest pain described as burning without associated symptoms and found to be in DKA. Low suspicion for ACS. Chest x-ray is benign. CT of the abdomen and chest was negative for PE and acute pulmonary processes; did incidentally find cholelithiasis. EKG demonstrated normal sinus rhythm. Troponin is negative. Glucose of 332, bicarb of 6, and anion gap of 27. A1c 10.1% She was initially placed on an insulin drip with aggressive IV fluid rehydration. Electrolytes were monitored every 6 hours and replaced as needed. Her anion gap subsequently closed and bicarb improved to 25. The patient is transitioned to a consistent carb diet. She was placed on Lantus 10 units daily. She met with the community nutrition educator who recommended Humalog 1 unit per 20 g of carb at meals with sliding scale ACHS to closely match her bolus regiment when previously on an insulin pump. She was observed overnight and the patient successfully dosed and administered her own insulin. She was discharged to home in stable condition. She was provided prescriptions for Lantus, Humalog, and Calcium supplements. She is encouraged to follow [facility] 1 week to establish with a local PCP. Physical Exam Vital Signs: Temp Pulse Resp BP Pulse Ox 97.9 F 76 18 101/59 L 99 07/08/18 11:30 07/08/18 11:30 07/08/18 11:30 07/08/18 11:30 07/08/18 11:30 Intake & Output 07/08/18 07/09/18 07/10/18 06:59 06:59 06:59 Intake Total 1401 Output Total 2300 Balance -899 Weight 48.4 kg General appearance: PRESENT: no acute distress, cooperative, thin, well- developed, well-nourished Head exam: PRESENT: atraumatic, normocephalic Eye exam: PRESENT: conjunctiva pink, EOMI, PERRLA. ABSENT: scleral icterus Ear exam: PRESENT: normal external ear exam Mouth exam: PRESENT: moist, tongue midline Neck exam: ABSENT: carotid bruit, JVD, lymphadenopathy, thyromegaly Respiratory exam: PRESENT: clear to auscultation denita. ABSENT: rales, rhonchi, wheezes Cardiovascular exam: PRESENT: RRR. ABSENT: diastolic murmur, rubs, systolic murmur Pulses: PRESENT: normal dorsalis pedis pul Vascular exam: PRESENT: normal capillary refill GI/Abdominal exam: PRESENT: normal bowel sounds, soft. ABSENT: distended, guarding, mass, organolmegaly, rebound, tenderness Rectal exam: PRESENT: deferred Extremities exam: PRESENT: full ROM. ABSENT: calf tenderness, clubbing, pedal edema Neurological exam: PRESENT: alert, awake, oriented to person, oriented to place , oriented to time, oriented to situation, CN II-XII grossly intact. ABSENT: motor sensory deficit Psychiatric exam: PRESENT: appropriate affect, normal mood. ABSENT: homicidal ideation, suicidal ideation Skin exam: PRESENT: dry, intact, warm. ABSENT: cyanosis, rash Results Laboratory Results: 07/06/18 03:55 07/07/18 18:24 Impressions: Chest X-Ray 07/05/18 17:48 IMPRESSION: NO ACUTE RADIOGRAPHIC FINDING IN THE CHEST. Chest/Abdomen CTA 07/05/18 18:12 IMPRESSION: 1. No pulmonary emboli. No acute findings in the chest. 2. Cholelithiasis. Qualifiers - * PATIENT BEING DISCHARGED WITH ANY OF THE FOLLOWING DIAGNOSIS: No Plan Discharge Plan: Discharge to home. Follow up with primary care provider within 1 week. Time Spent: Greater than 30 Minutes
== END 2018-07-08 12:08 | disposition home or self-care (01) | DRG 639 ==
LOC: ER 16:13 → EH 20:13 → 3W 07-06 15:59
PROVIDERS: ADMIT Family Medicine; ATTEND Family Medicine
DX: E10.10 Type 1 diabetes mellitus with ketoacidosis without coma (principal); R07.9 Chest pain, unspecified; M54.5 Low back pain; Z91.120 Patient's intentional underdosing of medication regimen due to financial hardship
CPT/HCPCS: 36415; 36600; 71046; 71275; 80048; 80053; 81001; 81025; 82010; 82550; 82553; 82803; 82962; 83036; 83605; 83735; 84100; 84443; 84484; 85025; 85379; 87040; 93005; 93010; 96361; 96374; 99291; J1170; J1650; J1815; J1885; J3475; J3480; J3490; J7030; J7050; J7060; J7120; S0119